=== PATIENT | male | born 1965 | race Caucasian/White ===

== ENCOUNTER 2023-08-17 09:49 | Emergency (ER) | payer OTHER ==
[2023-08-17 10:08] VITALS: O2SAT 97
[2023-08-17] MEDS ORDERED: cephALEXin 250 MG CAPSULE PO STA (10:33)
[2023-08-17] MEDS ORDERED: predniSONE 20 MG TABLET PO STA (10:33)
--- NOTE | 2023-08-17 10:41 | ED Physician Documentation ---
History of Present Illness - Stated complaint Stated Complaint: RT EYE SWELLING - Chief complaint Chief Complaint: Heent - History obtained from History obtained from: Patient - History of Present Illness Timing: How many days ago (2) Pain level max: 0 Pain level now: 0 - Additonal information Additional information: Patient is a 57-year-old male who presents to the emergency department with redness and swelling to the right lower eyelid. This started a few days ago and is gradually worsened. Described as itchy. He states it started after he accidentally was sprayed in the face with bug spray. He immediately washed the area. No vision changes. No pain. No fevers. No chills. Nothing makes it better or worse. Review of Systems Constitutional: denies: Fever, Chills GI: denies: Vomiting, Diarrhea Skin: denies: Rash Musculoskeletal: denies: Neck pain, Back pain Neurologic: denies: Headache PD PAST MEDICAL HISTORY - Past Medical History Past Medical History: No - Present Medications Home Medications: Ambulatory Orders Medication Instructions Recorded Confirmed cephALEXin [Keflex] 500 mg PO Q6H #28 cap 08/17/23 predniSONE [Deltasone] 40 mg PO DAILY #10 tablet 08/17/23 - Allergies Allergies/Adverse Reactions: Allergies Allergy/AdvReac Type Severity Reaction Status Date / Time meperidine [From Demerol] Allergy Anxiety Verified 08/17/23 10:02 - Living Situation Living Arrangement: reports: At home - Social History Does the pt have substance abuse?: No - Family History Family history: reports: Non contributory PD ED PE NORMAL - Vitals Vital signs reviewed: Yes - General General: Alert and oriented X 3, No acute distress, Other (swelling R lower eyelid - Mild erythema. No fluctuance. Otherwise normal examination of the right eye and eyelids. No evidence of foreign body. No conjunctival injection. No drainage) - HEENT HEENT: PERRL, Moist mucous membranes - Cardiac Cardiac: RRR - Respiratory Respiratory: No respiratory distress, Clear bilaterally - Derm Derm: Warm and dry - Neuro Neuro: Alert and oriented X 3 - Psych Psych: Normal mood, Normal affect Results - Vitals Vitals: Vital Signs - 24 hr 08/17/23 09:59 Temperature 37 C Heart Rate 80 Respiratory 16 Rate O2 Saturation 97 Oxygen O2 Source Room air PD Medical Decision Making - ED course Complexity details: considered differential, d/w patient ED course: Patient with a right lower eyelid blepharitis, infectious versus allergic. We will place on steroids and antibiotics. No evidence of orbital cellulitis. No evidence of abscess. No drainage from the eye. Patient counseled regarding signs and symptoms for which I believe and urgent re-evaluation would be necessa ry. Patient with good understanding of and agreement to plan and is comfortable going home at this time This document was made in part using voice recognition software. While efforts are made to proofread this document, sound alike and grammatical errors may occur. Departure - Departure Disposition: 01 Home, Self Care Clinical Impression: Blepharitis Qualifiers: Blepharitis type: unspecified type Laterality: right Eyelid: lower Qualified Code(s): H01.002 - Unspecified blepharitis right lower eyelid Condition: Good Instructions: ED Inflammation Eyelid Follow-Up: your,doctor in 3 days if not better [Other] Ghulam Francois MD [Provider Admit Priv/Credential] - Prescriptions: predniSONE [Deltasone] 40 mg PO DAILY #10 tablet cephALEXin [Keflex] 500 mg PO Q6H #28 cap Comments: If you are not improved in the next 2 to 3 days, you should follow-up with an spiritual counselor. I have included Dr. Francois's contact information for you. Please take all antibiotics until gone. This could be allergic or infectious, though your exam does favor allergic over infectious. You can use Zyrtec or Claritin for any itching. Please return if you worsen. Your prescriptions were sent to [facility] in [place]. Forms: PCP List Discharge Date/Time: 08/17/23 11:07
== END 2023-08-17 11:07 | disposition home or self-care (01) ==
LOC: ED 09:49
DX: H01.002 Unspecified blepharitis right lower eyelid (principal)
CPT/HCPCS: 99282; 99283; A9270; J7512